=== PATIENT | female | born 1955 | race Two or more races ===

== ENCOUNTER 2018-02-02 08:42 | Outpatient (CLI) | payer OTHER | END 2018-02-02 08:46 | disposition home or self-care (01) | LOC: SONOGRAMA 08:42 | DX: E04.1 Nontoxic single thyroid nodule (principal) ==

== ENCOUNTER 2019-05-24 11:00 | Outpatient (CLI) | payer OTHER | END 2019-05-24 11:20 | disposition home or self-care (01) | LOC: SONOGRAMA 11:00 | DX: E04.1 Nontoxic single thyroid nodule (principal) ==